=== PATIENT | male | born 1960 | race Caucasian/White ===

== ENCOUNTER 2020-01-28 07:05 | Day surgery (SDC) | payer MEDICARE, OTHER ==
[~2020-01-28 07:05] MED LIST: Acetaminophen 325 MG Tab PO SCH; Lactated Ringers 1,000 ML IV SCH; Lidocaine 1%/Sod Bicarbonate in NS 8.4% 1 ML Syringe IDERM PRN; Pregabalin 25 MG Cap PO SCH; Sodium Chloride 0.9% 10 ML Syringe FLUSH PRN; oxyCODONE ER 10 MG TAB.ER PO SCH
[2020-01-28] MEDS ORDERED: Ropivacaine 0.5% 5 MG/ML 30 ML SDV ONE (07:06)
[2020-01-28] MEDS ORDERED: Dexmedetomidine 200 MCG/2 ML SDV ONE (07:06)
[2020-01-28] MEDS ORDERED: Propofol 200 MG/20 ML SDV ONE (07:15)
[2020-01-28] MEDS ORDERED: fentaNYL 100 MCG/2 ML SDV ONE (07:15)
[2020-01-28] MEDS ORDERED: Dexamethasone 4 MG/ML 5 ML MDV ONE (07:16)
[2020-01-28] MEDS ORDERED: Ondansetron 4 MG/2 ML SDV ONE (07:16)
[2020-01-28] MEDS ORDERED: Succinylcholine/Sod PF 100 MG/5 ML SYRINGE IV ONE (07:16)
[2020-01-28] MEDS ORDERED: Midazolam 1 MG/ML 2 ML SDV ONE (07:16)
[2020-01-28] MEDS ORDERED: Lidocaine 1% 8 ML ONE (07:17)
[2020-01-28] MEDS ORDERED: Bupivacaine 0.25% 10 ML SDV ONE (07:19)
[2020-01-28] MEDS ORDERED: Vancomycin 1 GM SDV ONE (07:19)
[2020-01-28] MEDS ORDERED: Albuterol 0.083% 2.5 MG/3 ML Neb Soln NEB SCH (07:48)
--- NOTE | 2020-01-28 07:48 | PCM.PREANE ---
Preanesthetic Assessment - Anesthesia/Transfusion/Family Hx Anesthesia History: Prior Anesthesia Without Reaction Transfusion History: Unknown - Review of Systems General: No Symptoms Pulmonary: No Symptoms Cardiovascular: No Symptoms Gastrointestinal: No Symptoms Neurological: No Symptoms Other: Reports: None - Physical Assessment NPO Status Date: 01/27/20 NPO Status Time: 20:30 Vital Signs: Last Vital Signs Temp 97.4 F 01/28/20 07:10 Pulse 94 01/28/20 07:10 Resp 16 01/28/20 07:10 BP 116/75 01/28/20 07:10 Pulse Ox 96 01/28/20 07:10 Height: 1.7 m Weight: 78.471 kg ASA Class: 2 Mental Status: Alert & Oriented x3 Dentition: Reports: Dentures (upper and lower), Edentulous Thyro-Mental Finger Breadths: 3 Mouth Opening Finger Breadths: 3 ROM/Head Extension: Limited/Partial Lungs: Clear to Auscultation, Other (coarse at all mosley) Cardiovascular: Regular Rate, Regular Rhythm - Lab Values: Laboratory Last Values MRSA (PCR) Negative 01/16/20 12:58 - Allergies Allergies/Adverse Reactions: Allergies Allergy/AdvReac Type Severity Reaction Status Date / Time vitamin E (d-alpha Allergy Rash Verified 01/28/20 07:06 tocopherol) - Acknowledgements Anesthesia Type Planned: General Anesthesia, Regional Block (Rt ISB) Pt an Appropriate Candidate for the Planned Anesthesia: Yes Alternatives and Risks of Anesthesia Discussed w Pt/Guardian: Yes Pt/Guardian Understands and Agrees with Anesthesia Plan: Yes PreAnesthesia Questionnaire Cardiovascular History: Reports: High Cholesterol, PVD Other Respiratory History: lung nodule Gastrointestinal History: Reports: GERD Genitourinary History: Reports: Prostate Disorder Musculoskeletal History: Reports: Osteoarthritis - Past Surgical History HEENT Surgical History: Reports: Cataract Surgery Cardiovascular Surgical History: Reports: Vascular Surgery Other Neurological Surgeries/Procedures: back surgery x 2 Musculoskeletal Surgical History: Reports: Amputation, Carpal Tunnel, Knee Replacement Other Musculoskeletal Surgeries/Procedures:: right wwrist carpal tunnel release, left below elbow amputation, bilat knee replacement - SUBSTANCE USE Tobacco Use Status *Q: Current Every Day Tobacco User Recreational Drug Use History: No - HOME MEDS Home Medications: Home Meds Ascorbic Acid [Vitamin C] 1 tab PO DAILY 01/25/20 [History] Aspirin [Halfprin] 81 mg PO DAILY 01/25/20 [History] Meloxicam [Mobic] 7.5 mg PO DAILY 01/25/20 [History] Omeprazole Magnesium [Prilosec Otc] 20 mg PO DAILY 01/25/20 [History] Simvastatin [Zocor] 40 mg PO BEDTIME 01/25/20 [History] Tamsulosin [Flomax] 0.4 mg PO DAILY 01/25/20 [History] traMADol [Ultram] 50 mg PO BID PRN 01/25/20 [History] Aspirin [Aspirin EC] 325 mg PO DAILY #40 tablet.dr 01/28/20 [Rx] Cyclobenzaprine [Flexeril] 10 mg PO BID PRN #20 tab 01/28/20 [Rx] oxyCODONE 5 - 10 mg PO Q4H PRN #40 tab 01/28/20 [Rx] - CURRENT (IN HOUSE) MEDS Current Meds: Current Medications Acetaminophen (Tylenol) 975 mg PO ONETIME EARL Stop: 01/28/20 18:00 Last Admin: 01/28/20 07:25 Dose: 975 mg Documented by: Lactated Ringer's (Ringers, Lactated) 1,000 mls @ 125 mls/hr IV ASDIRECTED EARL Stop: 01/28/20 23:00 Lidocaine/Sodium Bicarbonate (Buffered Lidocaine 1% In Ns 8.4%) 0.25 ml IDERM ONETIME PRN PRN Reason: Prior to IV Start Stop: 01/28/20 18:00 Oxycodone HCl (Oxycontin) 10 mg PO ONETIME EARL Stop: 01/28/20 18:00 Last Admin: 01/28/20 07:25 Dose: 10 mg Documented by: Pregabalin (Lyrica) 50 mg PO ONETIME EARL Stop: 01/28/20 18:00 Last Admin: 01/28/20 07:25 Dose: 50 mg Documented by: Sodium Chloride (Saline Flush) 10 ml FLUSH ASDIRECTED PRN PRN Reason: Keep Vein Open Stop: 01/28/20 18:00 Discontinued Medications Bupivacaine HCl (Sensorcaine-Mpf 0.25%) Confirm Administered Dose 30 ml .ROUTE .STK-MED ONE Stop: 01/28/20 07:20 Dexamethasone (Dexamethasone) Confirm Administered Dose 20 mg .ROUTE .STK-MED ONE Stop: 01/28/20 07:17 Dexmedetomidine HCl (Precedex) Confirm Administered Dose 200 mcg .ROUTE .STK-MED ONE Stop: 01/28/20 07:07 Fentanyl (Sublimaze) Confirm Administered Dose 100 mcg .ROUTE .STK-MED ONE Stop: 01/28/20 07:16 Lidocaine HCl (Xylocaine-Mpf 1%) Confirm Administered Dose 8 mls @ as directed .ROUTE .STK-MED ONE Stop: 01/28/20 07:18 Midazolam HCl (Versed 1 Mg/Ml) Confirm Administered Dose 6 mg .ROUTE .STK-MED ONE Stop: 01/28/20 07:17 Ondansetron HCl (Zofran) Confirm Administered Dose 8 mg .ROUTE .ST-MED ONE Stop: 01/28/20 07:17 Propofol (Diprivan 20 Ml) Confirm Administered Dose 200 mg .ROUTE .STK-MED ONE Stop: 01/28/20 07:16 Ropivacaine (Naropin 0.5%) Confirm Administered Dose 30 ml .ROUTE .STK-MED ONE Stop: 01/28/20 07:07 Tranexamic Acid (Cyklokapron) Confirm Administered Dose 1,000 mg .ROUTE .STK-MED ONE Stop: 01/28/20 07:20 Vancomycin HCl (Vancomycin) Confirm Administered Dose 1 gm .ROUTE .STK-MED ONE Stop: 01/28/20 07:20
[2020-01-28] MEDS ORDERED: ceFAZolin 1 GM Vial ONE (08:23)
[2020-01-28] MEDS ORDERED: Lactated Ringers 1,000 ML ONE (09:15)
[2020-01-28] MEDS ORDERED: HYDROmorphone 0.5 MG/0.5 ML Syringe ONE (09:20)
--- NOTE | 2020-01-28 09:42 | PCM.PRNOTE ---
- Free Text/Narrative Note: Postoperative regional pain control requested by surgeon. Pre-op Dx: Right shoulder osteoarthritis Surgical procedure: Right reverse tottal shoulder arthroplasty Procedure: Right Interscalene block with U/S guidance Requesting physician: Dr. Mahendra Hernandez Risks and benefits discussed with the patient preoperatively including infection, bleeding, incomplete or failed block, possible nerve damage, local anesthetic toxicity. Chart reviewed, VS stable. Permit signed. Patient in preoperative room 3, stable , alert and awake. Time out performed at 08:06. Oxygen 3L via NC. Right side of the neck was prepped with Chloraprep x 1 and allowed to dry. Midazolam IV 2 mg given. Under aseptic technique, the brachial plexus was identified under ultrasound prior to needle insertion. Local infiltration with 2 mls of 1% Lidocaine. 2" Stimuplex needle #22 G was inserted under US guidance. Neuromuscular response of biceps contraction and forearm twitching elicited at 0.6 mA. Under direct visualization of needle tip the injection of 0.5% Ropivacaine (25 ml) with 1:200k epinephrine 8 mg of Dexamethasone and 30 mcg of Dexmedetomidine, total of 27 mls in divided doses, maintaining negative aspiration was completed without problems. No local anesthetic toxicity was noted. Patient is awake, stable and tolerated the procedure well. Please see the attached U/S image Time: 08:06 - 08:16
[2020-01-28] MEDS ORDERED: HYDROmorphone 0.5 MG/0.5 ML Syringe IVPUSH PRN (09:48)
[2020-01-28] MEDS ORDERED: fentaNYL 100 MCG/2 ML SDV IVPUSH PRN (09:48)
--- NOTE | 2020-01-28 10:40 | PCM.POSTAN ---
POST ANESTHESIA ASSESSMENT - MENTAL STATUS Mental Status: Somnolent - VITAL SIGNS Vital Signs: Last Vital Signs Temp 97.0 F 01/28/20 10:30 Pulse 94 01/28/20 07:10 Resp 9 L 01/28/20 10:30 BP 110/65 01/28/20 10:30 Pulse Ox 98 01/28/20 10:30 - RESPIRATORY Respiratory Status: Respiratory Rate WNL, Airway Patent, O2 Saturation Stable, Supplemental Oxygen - CARDIOVASCULAR CV Status: Pulse Rate WNL, Blood Pressure Stable - GASTROINTESTINAL GI Status: No Symptoms - PAIN Pain Score: 0 (post ISB) - POST OP HYDRATION Hydration Status: Adequate & Stable
--- NOTE | 2020-01-28 14:15 | PCM48HPAN ---
Post Anesthesia Note - EVALUATION WITHIN 48HRS OF ANESTHETIC Vital Signs in Normal Range: Yes Patient Participated in Evaluation: Yes Respiratory Function Stable: Yes Airway Patent: Yes Cardiovascular Function Stable: Yes Hydration Status Stable: Yes Pain Control Satisfactory: Yes Nausea and Vomiting Control Satisfactory: Yes Mental Status Recovered: Yes Vital Signs: Last Vital Signs Temp 97.7 F 01/28/20 12:25 Pulse 86 01/28/20 12:25 Resp 16 01/28/20 12:25 BP 93/71 01/28/20 12:25 Pulse Ox 90 L 01/28/20 12:25 - COMMENTS/OBSERVATIONS Free Text/Narrative:: Instructions given to the patient and family member regarding the peripheral block. Ptient is comfortable, ready to be discharged home
--- NOTE | 2020-01-28 15:16 | CR ---
PROCEDURE INFORMATION: Exam: XR Right Shoulder Exam date and time: 01/28/2020 10:32 AM Age: 59 years old Clinical indication: Device placement; Joint replacement hardware; Patient HX: Right shoulder replacement TECHNIQUE: Imaging protocol: XR Right shoulder. Views: 1 view. COMPARISON: CR Shoulder Comp Rt 05/01/2019 12:23 PM FINDINGS: Bones/joints: The patient has had an interval right reverse total shoulder arthroplasty. There is degenerative change involving the acromioclavicular joint. Soft tissues: Postoperative soft tissue changes. IMPRESSION: Postoperative and degenerative changes. Thank you for allowing us to participate in the care of your patient. Dictated and Authenticated by: Elgin Real MD 01/28/2020 12:05 PM Central Time ([place] & [place]) ROBB
--- NOTE | 2020-01-28 15:17 | CR ---
PROCEDURE INFORMATION: Exam: XR Right Shoulder Exam date and time: 01/28/2020 10:49 AM Age: 59 years old Clinical indication: Right total shoulder replacement TECHNIQUE: Imaging protocol: XR Right shoulder. Views: 1 view. COMPARISON: No relevant prior studies available. FINDINGS: Bones/joints: Intraoperative spot radiographs demonstrate that the patient has had a reverse total shoulder arthroplasty. Soft tissues: Postoperative soft tissue changes present. IMPRESSION: Postoperative changes. Thank you for allowing us to participate in the care of your patient. Dictated and Authenticated by: Elgin Real MD 01/28/2020 11:28 AM Central Time ([place] & [place]) ROBB
--- NOTE | 2020-02-11 14:11 | PCM.OPNOTE ---
- General Post-Op/Procedure Note Date of Surgery/Procedure: 01/28/20 Operative Procedure(s): right reverese total shoulder arthroplasty Pre Op Diagnosis: right shoulder rotator cuff tear arthropathy Post-Op Diagnosis: Same Anesthesia Technique: General ET Tube, Regional Block Primary Surgeon: Mahendra King Anesthesia Provider: Leonardo Hayes Embossing Press Operator: Johnna Smith Embossing Press Operator: Calista Macias EBL in mLs: 150 Complications: None Condition: Good Free Text/Narrative:: 18 stem 36+4 glenosphere 28mm baseplate +6 poly
--- NOTE | 2020-02-11 15:09 | OR ---
DATE OF OPERATION: 01/28/2020 SURGEON: Mahendra King MD OPERATION PERFORMED: Right reverse total shoulder arthroplasty. PREOPERATIVE DIAGNOSIS: Right shoulder rotator cuff tear arthropathy. POSTOPERATIVE DIAGNOSIS: Right shoulder rotator cuff tear arthropathy. ANESTHESIA: General endotracheal intubation with regional interscalene block. ANESTHESIA PROVIDER: Leonardo Hayes. ASSISTANTS: Johnna Smith PA-C, and Calista Macias LPN. ESTIMATED BLOOD LOSS: 150 mL. COMPLICATIONS: None. CONDITION: Stable. IMPLANTS: 1. Cesar size 18, 135-degree humeral stem. 2. Cesar size 36 +4 glenosphere. 3. Norris size 28 mm concentric base plate. 4. Norris size +6 mm polyethylene liner. DESCRIPTION OF PROCEDURE: The patient was identified in the preoperative holding area where proper site was marked and identified by the surgeon. The patient was taken back to the operative theater, where after adequate anesthesia, the patient's right upper extremity was sterilely prepped and draped in the usual sterile fashion. OR time-out was performed. The patient received 2 g IV Ancef. He was placed in the reverse Trendelenburg position. Standard deltopectoral incision was made. Cephalic vein was identified and was retracted laterally with the deltoid. Clavipectoral fascia was incised. Conjoined tendon was retracted medially. Biceps tendon was identified and a pectoralis tenodesis was performed. The biceps tendon above this was then resected. The biceps tendon was resected all the way back to the level of the glenoid. Peel down of the subscapularis tendon was then done at this time. Humeral head was then dislocated. Neck cut was completed and found to be adequate. Attention was turned to the glenoid. Anterior and posterior glenoid retractors were placed. Circumferential removal of the labrum as well as any remaining biceps was done at this time as well as a partial capsulectomy. Guide pin was then placed in a center-center position with roughly 10 degrees of inferior tilt and a 28 mm concentric reamer was then utilized for the base plate. It was found to have good resection with a good smile sign. The inferior osteophyte was then removed with a rongeur. The guide pin was then pulled and the 28 mm concentric base plate was screwed in place with a central compression screw, which was found to have adequate purchase. Inferior and superior locking screws were then placed in the glenoid in divergent fashion. A 36 +4 glenosphere was then impacted into place and found to be secure. Attention was turned to the humerus. Starting with a starter awl, I started with a size 12 broach, was able to broach up to a size 18, which was found to be rotationally and vertically stable. A calcar planer was then utilized in the humerus and the trial implants with a +4 were trialed with trial +4 liner. This was brought through range of motion, was found to have just a minor amount of shuck on shuck testing, so we decided to trial a +6. This had adequate stability throughout range of motion. No signs of dislocation or instability. C-arm fluoroscopy was utilized to make sure that the trial parts were in good position and they were. Trial parts were then removed and the stem was constructed on the back table and then was impacted into the humerus en bloc. At this time, the shoulder was relocated. C-arm fluoroscopy was then utilized and all components were aligned. 1 L of Irrisept solution was irrigated through the shoulder along with 1 L pulse lavage irrigation with Ancef. Topical tranexamic acid and vancomycin powder were applied. 2-0 Vicryl was used subcutaneously. Prineo was used for closure of the skin. The patient was placed in a sterile soft dressing and a pillow sling and sent to the PACU in stable condition. MMODAL /[id number]
== END 2020-01-28 14:10 | disposition home or self-care (01) ==
LOC: JD.SDS 07:05
PROVIDERS: ATTEND Orthopaedic Surgery
DX: M75.101 Unspecified rotator cuff tear or rupture of right shoulder, not specified as traumatic (principal); M19.011 Primary osteoarthritis, right shoulder; F17.210 Nicotine dependence, cigarettes, uncomplicated; Z88.8 Allergy status to other drugs, medicaments and biological substances; Z79.899 Other long term (current) drug therapy
CPT/HCPCS: 23472; 73020; 76000; 87641; 94640; 97110; 97161; 97165; A9270; C1713; C1769; C1776; J0330; J0690; J1100; J1170; J2001; J2250; J2370; J2405; J2704; J2795; J3010; J3370; J3490; J7120; 01638; 64415

== ENCOUNTER 2020-03-31 07:09 | Day surgery (SDC) | payer MEDICARE, OTHER ==
[~2020-03-31 07:09] MED LIST changes: +Ropivacaine 0.5% 5 MG/ML 30 ML SDV ONE
[2020-03-31] MEDS ORDERED: ceFAZolin 1 GM Vial ONE (07:14)
[2020-03-31] MEDS ORDERED: fentaNYL 100 MCG/2 ML SDV ONE (07:14)
[2020-03-31] MEDS ORDERED: Midazolam 1 MG/ML 2 ML SDV ONE (07:14)
[2020-03-31] MEDS ORDERED: Lidocaine 1% 4 ML ONE (07:15)
[2020-03-31] MEDS ORDERED: Dexmedetomidine 200 MCG/2 ML SDV ONE (07:15)
[2020-03-31] MEDS ORDERED: Ondansetron 4 MG/2 ML SDV ONE (07:15)
[2020-03-31] MEDS ORDERED: Bupivacaine 0.25% 10 ML SDV ONE (07:20)
[2020-03-31] MEDS ORDERED: Propofol 200 MG/20 ML SDV ONE (07:25)
--- NOTE | 2020-03-31 08:12 | PCM.PREANE ---
Preanesthetic Assessment - Procedure Proposed Procedure: Left Reverse TSR - Anesthesia/Transfusion/Family Hx Anesthesia History: Prior Anesthesia Without Reaction Transfusion History: Unknown - Review of Systems General: No Symptoms Pulmonary: No Symptoms Cardiovascular: No Symptoms Gastrointestinal: No Symptoms Neurological: No Symptoms Other: Reports: None - Physical Assessment NPO Status Date: 03/30/20 NPO Status Time: 20:00 Vital Signs: Last Vital Signs Temp 98.2 F 03/31/20 07:05 Pulse 88 03/31/20 07:05 Resp 16 03/31/20 07:05 BP 124/84 03/31/20 07:05 Pulse Ox 93 L 03/31/20 07:05 Height: 1.7 m Weight: 79.832 kg ASA Class: 2 Mental Status: Alert & Oriented x3 Airway Class: Mallampati = 2 Dentition: Reports: Dentures, Edentulous Thyro-Mental Finger Breadths: 3 Mouth Opening Finger Breadths: 3 ROM/Head Extension: Limited/Partial Lungs: Clear to Auscultation, Normal Respiratory Effort Cardiovascular: Regular Rate, Regular Rhythm - Lab Values: Laboratory Last Values SARS-CoV-2 (PCR) Not detected (NOT DETECT) 03/27/20 09:30 MRSA (PCR) Negative 03/19/20 13:24 - Allergies Allergies/Adverse Reactions: Allergies Allergy/AdvReac Type Severity Reaction Status Date / Time vitamin E (d-alpha Allergy Rash Verified 03/28/20 13:14 tocopherol) - Acknowledgements Anesthesia Type Planned: General Anesthesia, Regional Block Pt an Appropriate Candidate for the Planned Anesthesia: Yes Alternatives and Risks of Anesthesia Discussed w Pt/Guardian: Yes Pt/Guardian Understands and Agrees with Anesthesia Plan: Yes PreAnesthesia Questionnaire HEENT History: Reports: None Cardiovascular History: Reports: High Cholesterol, PVD, Other (See Below) Other Cardiovascular History: femoral bypass surgery Other Respiratory History: lung nodule Gastrointestinal History: Reports: GERD Genitourinary History: Reports: Prostate Disorder [employer] History: Reports: None Musculoskeletal History: Reports: Osteoarthritis Neurological History: Reports: None Psychiatric History: Reports: None Endocrine/Metabolic History: Reports: None Hematologic History: Reports: None Immunologic History: Reports: None Oncologic (Cancer) History: Reports: None Dermatologic History: Reports: None - Past Surgical History Head Surgeries/Procedures: Reports: None HEENT Surgical History: Reports: Cataract Surgery Cardiovascular Surgical History: Reports: Vascular Surgery Respiratory Surgical History: Reports: None GI Surgical History: Reports: None Female Surgical History: Reports: None Male Surgical History: Reports: None Endocrine Surgical History: Reports: None Neurological Surgical History: Reports: Other (See Below) Other Neurological Surgeries/Procedures: back surgery x 2 Musculoskeletal Surgical History: Reports: Amputation, Carpal Tunnel, Joint Replacement, Knee Replacement, Shoulder Surgery Other Musculoskeletal Surgeries/Procedures:: right wrist carpal tunnel release, left below elbow amputation, bilat knee replacement, right total shoulder replacement Oncologic Surgical History: Reports: None Dermatological Surgical History: Reports: None - SUBSTANCE USE Tobacco Use Status *Q: Current Every Day Tobacco User Recreational Drug Use History: No - HOME MEDS Home Medications: Home Meds Ascorbic Acid [Vitamin C] 1 tab PO DAILY 01/25/20 [History] Meloxicam [Mobic] 7.5 mg PO DAILY 01/25/20 [History] Omeprazole Magnesium [Prilosec Otc] 20 mg PO DAILY 01/25/20 [History] Simvastatin [Zocor] 40 mg PO BEDTIME 01/25/20 [History] Tamsulosin [Flomax] 0.4 mg PO DAILY 01/25/20 [History] Cholecalciferol (Vitamin D3) [Vitamin D3] 5,000 unit PO DAILY 03/28/20 [History] Pramipexole [Mirapex] 0.25 mg PO DAILY 03/28/20 [History] Aspirin [Aspirin EC] 325 mg PO DAILY #40 tablet. 03/29/20 [Rx] Cyclobenzaprine [Flexeril] 10 mg PO BID PRN #20 tab 03/29/20 [Rx] oxyCODONE 5 - 10 mg PO Q4H PRN #40 tab 03/29/20 [Rx] - CURRENT (IN HOUSE) MEDS Current Meds: Current Medications Acetaminophen (Tylenol) 975 mg PO ONETIME EARL Stop: 03/31/20 13:00 Last Admin: 03/31/20 07:18 Dose: 975 mg Documented by: Lactated Ringer's (Ringers, Lactated) 1,000 mls @ 125 mls/hr IV ASDIRECTED EARL Stop: 03/31/20 23:00 Last Admin: 03/31/20 07:25 Dose: 125 mls/hr Documented by: Lidocaine/Sodium Bicarbonate (Buffered Lidocaine 1% In Ns 8.4%) 0.25 ml IDERM ONETIME PRN PRN Reason: Prior to IV Start Stop: 03/31/20 18:00 Last Admin: 03/31/20 07:24 Dose: 0.25 ml Documented by: Oxycodone HCl (Oxycontin) 10 mg PO ONETIME EARL Stop: 03/31/20 13:00 Last Admin: 03/31/20 07:19 Dose: 10 mg Documented by: Pregabalin (Lyrica) 50 mg PO ONETIME EARL Stop: 03/31/20 13:00 Last Admin: 03/31/20 07:18 Dose: 50 mg Documented by: Sodium Chloride (Saline Flush) 10 ml FLUSH ASDIRECTED PRN PRN Reason: Keep Vein Open Stop: 03/31/20 18:00 Discontinued Medications Bupivacaine HCl (Sensorcaine-Mpf 0.25%) Confirm Administered Dose 10 ml .ROUTE .STK-MED ONE Stop: 03/31/20 07:21 Cefazolin Sodium (Ancef) Confirm Administered Dose 2 gm .ROUTE .STK-MED ONE Stop: 03/31/20 07:15 Dexmedetomidine HCl (Precedex) Confirm Administered Dose 200 mcg .ROUTE .STK-MED ONE Stop: 03/31/20 07:16 Fentanyl (Sublimaze) Confirm Administered Dose 100 mcg .ROUTE .STK-MED ONE Stop: 03/31/20 07:15 Lidocaine HCl (Xylocaine-Mpf 1%) Confirm Administered Dose 4 mls @ as directed .ROUTE .STK-MED ONE Stop: 03/31/20 07:16 Midazolam HCl (Versed 1 Mg/Ml) Confirm Administered Dose 4 mg .ROUTE .STK-MED ONE Stop: 03/31/20 07:15 Ondansetron HCl (Zofran) Confirm Administered Dose 8 mg .ROUTE .STK-MED ONE Stop: 03/31/20 07:16 Propofol (Diprivan 20 Ml) Confirm Administered Dose 200 mg .ROUTE .STK-MED ONE Stop: 03/31/20 07:26 Ropivacaine (Naropin 0.5%) Confirm Administered Dose 30 ml .ROUTE .STK-MED ONE Stop: 03/31/20 06:54 Tranexamic Acid (Cyklokapron) Confirm Administered Dose 1,000 mg .ROUTE .STK-MED ONE Stop: 03/31/20 07:21 Vancomycin HCl (Vancomycin) Confirm Administered Dose 1 gm .ROUTE .[facility] [place]-MED ONE Stop: 03/31/20 07:21
[2020-03-31] MEDS: Vancomycin 1 GM SDV ONE ×2 (08:23→09:59)
[2020-03-31] MEDS ORDERED: Lactated Ringers 1,000 ML ONE (09:34)
[2020-03-31] MEDS ORDERED: Dexamethasone 4 MG/ML 5 ML MDV ONE (09:52)
--- NOTE | 2020-03-31 09:54 | PCM.PRNOTE ---
- Free Text/Narrative Note: Postoperative regional pain control requested by surgeon. Pre-op Dx: Left shoulder osteoarthritis Surgical procedure: Left reverse tottal shoulder arthroplasty Procedure: Left Interscalene block with U/S guidance Requesting physician: Dr. Mahendra Hernandez Risks and benefits discussed with the patient preoperatively including infection, bleeding, incomplete or failed block, possible nerve damage, local anesthetic toxicity. Chart reviewed, VS stable. Permit signed. Patient in preoperative room, stable , alert and awake. Time out performed at 07:53. Oxygen 3L via NC. Left side of the neck was prepped with Chloraprep x 1 and allowed to dry. Midazolam IV 2 mg given. Under aseptic technique, the brachial plexus was identified under ultrasound prior to needle insertion. Local infiltration with 2 mls of 1% Lidocaine. 2" Stimuplex needle #22 G was inserted under US guidance. Neuromuscular response of biceps contraction and forearm twitching elicited at 0.6 mA. Under direct visualization of needle tip the injection of 0.5% Ropivacaine (20 ml) with 1:200k epinephrine 8 mg of Dexamethasone and 40 mcg of Dexmedetomidine, total of 22 mls in divided doses, maintaining negative aspiration was completed without problems. No local anesthetic toxicity was noted. Patient is awake, stable and tolerated the procedure well. Please see the attached U/S image Time: 07:53 - 07:59
--- NOTE | 2020-03-31 10:45 | CR ---
Left shoulder: 4 fluoroscopic spot views were obtained utilizing C-arm device were obtained of the left shoulder. Study shows placement of a reverse left shoulder prosthesis. No gross bony abnormality is otherwise seen. Fluoroscopy time is given as 5.2 seconds. Impression: 1. Procedural study as noted above. Diagnostic code #2
[2020-03-31] MEDS ORDERED: HYDROmorphone 0.5 MG/0.5 ML Syringe IVPUSH PRN (10:47)
[2020-03-31] MEDS ORDERED: fentaNYL 100 MCG/2 ML SDV IVPUSH PRN (10:47)
--- NOTE | 2020-03-31 10:47 | PCM.POSTAN ---
POST ANESTHESIA ASSESSMENT - MENTAL STATUS Mental Status: Somnolent - VITAL SIGNS Vital Signs: Last Vital Signs Temp 97.8 F 03/31/20 10:27 Pulse 87 03/31/20 10:27 Resp 14 03/31/20 10:27 BP 115/76 03/31/20 10:27 Pulse Ox 99 03/31/20 10:27 - RESPIRATORY Respiratory Status: Respiratory Rate WNL, Airway Patent, O2 Saturation Stable, Supplemental Oxygen - CARDIOVASCULAR CV Status: Pulse Rate WNL, Blood Pressure Stable - GASTROINTESTINAL GI Status: No Symptoms - PAIN Pain Score: 0 - POST OP HYDRATION Hydration Status: Adequate & Stable
--- NOTE | 2020-03-31 11:53 | CR ---
Left shoulder: Single AP view of the left shoulder was obtained. Comparison: Prior fluoroscopic exam performed on the same day. Left shoulder prosthesis is seen of the reverse type. No other acute bony abnormality is appreciated. Impression: 1. Procedural study as noted above. Nothing acute is seen. Diagnostic code #2
--- NOTE | 2020-03-31 12:11 | PCM48HPAN ---
Post Anesthesia Note - EVALUATION WITHIN 48HRS OF ANESTHETIC Vital Signs in Normal Range: Yes Patient Participated in Evaluation: Yes Respiratory Function Stable: Yes Airway Patent: Yes Cardiovascular Function Stable: Yes Hydration Status Stable: Yes Pain Control Satisfactory: Yes Nausea and Vomiting Control Satisfactory: Yes Mental Status Recovered: Yes Vital Signs: Last Vital Signs Temp 97.7 F 03/31/20 11:10 Pulse 72 03/31/20 11:24 Resp 14 03/31/20 11:24 BP 109/72 03/31/20 11:24 Pulse Ox 92 L 03/31/20 11:24 - COMMENTS/OBSERVATIONS Free Text/Narrative:: preparing for home discharge
--- NOTE | 2020-04-07 16:53 | PCM.OPNOTE ---
- General Post-Op/Procedure Note Date of Surgery/Procedure: 03/31/20 Operative Procedure(s): left reverse total shoulder arthroplasty Pre Op Diagnosis: left shoulder rotator cuff tear arthropathy Post-Op Diagnosis: Same Anesthesia Technique: General ET Tube, Regional Block Primary Surgeon: Mahendra King Anesthesia Provider: Leonardo Hayes Valet: Johnna Smith Valet: Calista Macias EBL in mLs: 125 Complications: None Condition: Good Free Text/Narrative:: 19 stem 36+6 glenosphere 4mm poly 28mm baseplate
--- NOTE | 2020-04-13 18:04 | OR ---
DATE OF OPERATION: 03/31/2020 SURGEON: Mahendra King MD OPERATION PERFORMED: Left reverse total shoulder arthroplasty. PREOPERATIVE DIAGNOSIS: Left shoulder rotator cuff tear arthropathy. POSTOPERATIVE DIAGNOSIS: Left shoulder rotator cuff tear arthropathy. ANESTHESIA: Technique: General endotracheal intubation with regional interscalene block. ANESTHESIOLOGIST: Leonardo Hayes. ASSISTANTS: Johnna Smith PA-C, and Calista Macias LPN. ESTIMATED BLOOD LOSS: 125 mL. COMPLICATIONS: None. CONDITION: Stable. IMPLANT: 1. Curlew size 19, 135-degree reverse humeral stem. 2. Cesar size 36 +6 glenosphere. 3. Curlew size +4 mm polyethylene. 4. Cesar size 28 mm concentric base plate. DESCRIPTION OF PROCEDURE: The patient was identified in the preoperative holding area. Proper site was marked and identified by the surgeon. The patient was taken back to the operating theater, where after adequate anesthesia, the patient's left upper extremity was sterilely prepped and draped in the usual sterile fashion. OR time-out was performed. The patient received 2 g IV Ancef. The patient was placed in reverse Trendelenburg position. A standard deltopectoral incision was made centered over the coracoid, taken down to the attachment of the deltoid. This was taken at the cephalic vein. Cephalic vein was identified and was retracted laterally with the deltoid. The pectoralis was retracted medially. The clavipectoral fascia was incised. The conjoined tendon was retracted medially. The anterior humeral circumflex vessels were ligated. Takedown of the biceps tendon was then done and a pectoralis tenodesis was performed with a #2 FiberWire. The biceps was then resected all the way back to the level of the glenoid. Peel down of the subscapularis tendon was then done at this time, the humeral head was dislocated and the neck cut was then completed and found to be adequate. Attention was turned to the glenoid. Anterior and posterior retractors were placed on the glenoid. Circumferential removal of the remaining labrum was done at this time as well as a partial capsulectomy. A guide pin was then placed in a center-center position with roughly 10-degree inferior tilt. The 28 mm concentric reamer was then utilized and back to a good bony bleeding bed. The guide pin was then removed. Central screw was measured and the 28 mm concentric glenoid base plate was then screwed into place with central compression screw and inferior and superior locking screw were then placed as well and a 36 +6 glenosphere was impacted into place. Attention was turned to the humerus. Starting with the starter awl, I was then able to ream the canal up to a 19. I was able then broach up to a 19, which was found to be rotationally and vertically stable. Calcar Planer was then utilized. Trial implants were then placed. The patient's shoulder was relocated, it was stable throughout range of motion with no undue tension on either the deltoid or the conjoined tendon. C-arm fluoroscopy showed our all implants to be in proper position and anatomic alignment. There was no instability throughout range of motion. Trial implants were then removed. The real implants were constructed on the back table with +4 poly and a 19 stem, 135 degree. This was then impacted into place and locked into the humerus and it was reduced. Again, C- arm fluoroscopy showed no fractures and again, everything in anatomic alignment. 1 L of Irrisept irrigation was irrigated through the shoulder along with 1 L pulse lavage irrigation with Ancef. Topical tranexamic acid and vancomycin powder applied, 2-0 Vicryl was used subcutaneously, Prineo was used for closure of skin. The patient tolerated the procedure well and sent to PACU in stable condition. GERALD /[id number]
== END 2020-03-31 12:26 | disposition home or self-care (01) ==
LOC: JD.SDS 07:09
PROVIDERS: ATTEND Orthopaedic Surgery
DX: M75.102 Unspecified rotator cuff tear or rupture of left shoulder, not specified as traumatic (principal); M19.012 Primary osteoarthritis, left shoulder; K21.9 Gastro-esophageal reflux disease without esophagitis; F17.210 Nicotine dependence, cigarettes, uncomplicated; G25.81 Restless legs syndrome; I73.9 Peripheral vascular disease, unspecified; Z98.890 Other specified postprocedural states; E78.00 Pure hypercholesterolemia, unspecified; Z01.812 Encounter for preprocedural laboratory examination; Z20.822 Contact with and (suspected) exposure to COVID-19; Z79.899 Other long term (current) drug therapy; Z79.82 Long term (current) use of aspirin; Z88.8 Allergy status to other drugs, medicaments and biological substances; G89.18 Other acute postprocedural pain
CPT/HCPCS: 23472; 73020; 76000; 87641; 97161; A9270; C1713; C1769; C1776; J0690; J1100; J2001; J2250; J2370; J2405; J2704; J2795; J3010; J3370; J7120; U0002; 01638; 64415; J3490

== ENCOUNTER 2021-04-19 23:21 | Emergency (ER) | payer MEDICARE, OTHER ==
[2021-04-19] MEDS ORDERED: Sodium Chloride 0.9% 1,000 ML IV SCH (23:45)
[2021-04-19] MEDS ORDERED: Sodium Chloride 0.9% 10 ML Syringe FLUSH PRN (23:56)
== END 2021-04-20 01:40 | disposition home or self-care (01) ==
LOC: JD.ED 23:21
DX: R55 Syncope and collapse (principal); R19.7 Diarrhea, unspecified; E78.00 Pure hypercholesterolemia, unspecified; K21.9 Gastro-esophageal reflux disease without esophagitis; M19.90 Unspecified osteoarthritis, unspecified site; Z88.8 Allergy status to other drugs, medicaments and biological substances; Z79.899 Other long term (current) drug therapy; Z79.82 Long term (current) use of aspirin; Z72.0 Tobacco use
CPT/HCPCS: 36415; 80053; 84484; 85025; 93005; 99284; J7030

== ENCOUNTER 2022-05-14 18:43 | Emergency (ER) | payer MEDICARE, OTHER | END 2022-05-14 21:00 | disposition home or self-care (01) | LOC: JD.ED 18:43 | DX: R04.0 Epistaxis (principal); E78.00 Pure hypercholesterolemia, unspecified; K21.9 Gastro-esophageal reflux disease without esophagitis; M19.90 Unspecified osteoarthritis, unspecified site; Z86.16 Personal history of COVID-19; Z88.8 Allergy status to other drugs, medicaments and biological substances; Z79.82 Long term (current) use of aspirin; Z79.899 Other long term (current) drug therapy | CPT/HCPCS: 30901; 99282; 99283 ==

== ENCOUNTER 2023-06-22 04:40 | Emergency (ER) | payer MEDICARE, OTHER ==
[2023-06-22] MEDS: HYDROmorphone 0.5 MG/0.5 ML Syringe IVPUSH ONE (05:09)
[2023-06-22] MEDS: Sodium Chloride 0.9% 10 ML Syringe FLUSH PRN (05:10)
[2023-06-22 05:43] LABS: ALANINE AMINOTRANSFERASE,ALT 76 U/L (16-63); ALBUMIN 4.1 g/dl (3.4-5.0); ALKALINE PHOSPHATASE 90 U/L (46-116); ANION GAP 13.5 (5-15); ASPARTATE AMNIOTRANSFERASE,AST 144 U/L (15-37); BILIRUBIN TOTAL 0.5 mg/dL (0.2-1.0); BLOOD UREA NITROGEN,BUN 10 mg/dL (7-18); BUN/CREATININE RATIO 11.1 (14-18); CALCIUM 9.5 mg/dL (8.5-10.1); CARBON DIOXIDE,CO2 30 mEq/L (21-32); CHLORIDE,CL 102 mEq/L (98-107); CREATININE 0.9 mg/dL (0.7-1.3); EST CRCL DRUG DOSING (CG) 79.56 mL/min; ESTIMATED GFR 97 mL/min (>60); GLUCOSE RANDOM 97 mg/dL (70-99); LIPASE 37 U/L (16-77); POTASSIUM,K 3.5 mEq/L (3.5-5.1); PROTEIN TOTAL,TP 8.1 g/dl (6.4-8.2); SODIUM,NA 142 mEq/L (136-145); TROPONIN I HIGH SENSITIVITY 8 pg/mL (<=76)
[2023-06-22 05:49] LABS: BASOPHILS ABSOLUTE AUTO 0.1 K/mm3 (0.0-0.2); BASOPHILS PERCENT AUTO 1.2 % (0.0-1.0); EOSINOPHILS ABSOLUTE AUTO 0.2 K/mm3 (0.0-0.4); EOSINOPHILS PERCENT AUTO 3.5 % (0.0-6.0); HEMATOCRIT 45.6 % (42.0-52.0); HEMOGLOBIN 15.1 gm/dl (14.0-18.0); IMMATURE GRAN ABSOLUTE AUTO 0.01 K/mm3 (0.00-0.05); IMMATURE GRAN PERCENT AUTO 0.2 % (0.0-0.4); LYMPHOCYTES ABSOLUTE AUTO 2.3 K/mm3 (1.0-4.8); MEAN CORPUSCULAR HGB CONC 33.1 g/dl (32.0-36.0); MEAN CORPUSCULAR VOLUME 87.5 fl (83.0-99.0); MEAN PLATELET VOLUME 10.8 fl (9.4-12.4); MONOCYTES ABSOLUTE AUTO 0.4 K/mm3 (0.0-0.8); MONOCYTES PERCENT AUTO 10.1 % (0.0-8.0); NEUTROPHILS ABSOLUTE AUTO 1.3 K/mm3 (1.8-7.7); PLATELET COUNT,PLT 256 K/mm3 (150-400); RED BLOOD CELL COUNT 5.21 M/mm3 (4.52-5.90); WHITE BLOOD CELL COUNT,WBC 4.26 K/mm3 (3.9-11.3)
[2023-06-22 06:05] LABS: C-REACTIVE PROTEIN < 0.05 mg/dL (<0.30)
[2023-06-22] MEDS ORDERED: Sodium Chloride 0.9% 100 ML IV SCH (06:15)
[2023-06-22] MEDS: Iopamidol 612 MG/ML 100 ML Bottle IVPUSH ONE (06:16)
[2023-06-22] MEDS: Iopamidol 755 Mg/ML 100 ML Bottle IVPUSH ONE (06:24)
[2023-06-22] MEDS: Alum Hydrox/Mag Hydrox/Simeth 30 ML, Lidocaine 2% 15 ML PO ONE (09:19)
[2023-06-22 10:01] LABS: APPEARANCE,URINE CLEAR (Clear); BILIRUBIN,URINE NEGATIVE (Negative); COLOR,URINE YELLOW (Yellow); GLUCOSE,URINE NEGATIVE (Negative); KETONES,URINE NEGATIVE (Negative); LEUKOCYTE ESTERASE,URINE NEGATIVE (Negative); NITRITE,URINE NEGATIVE (Negative); OCCULT BLOOD,URINE NEGATIVE (Negative); PH,URINE 5.5 (5.0-8.0); PROTEIN,URINE NEGATIVE (Negative)
[2023-06-22 10:36] LABS: BACTERIA,URINE RARE /hpf (FEW); EPITHELIAL CELLS,URINE NOT SEEN /hpf (0-5); MUCUS,URINE RARE /hpf (FEW); RBC,URINE 0-5 /hpf (0-5); WBC,URINE NOT SEEN /hpf (0-5)
== END 2023-06-22 10:00 | disposition home or self-care (01) ==
LOC: JD.ED 04:40
DX: K29.70 Gastritis, unspecified, without bleeding (principal); E78.00 Pure hypercholesterolemia, unspecified; I10 Essential (primary) hypertension; J44.9 Chronic obstructive pulmonary disease, unspecified; K21.9 Gastro-esophageal reflux disease without esophagitis; Z88.8 Allergy status to other drugs, medicaments and biological substances; Z79.899 Other long term (current) drug therapy; Z86.16 Personal history of COVID-19; Z90.49 Acquired absence of other specified parts of digestive tract
CPT/HCPCS: 36415; 71045; 71275; 74177; 80053; 81001; 83690; 84484; 85025; 85379; 86140; 93005; 96374; 99285; A9270; J1170; J3490; Q9967; 93010; 99284

== ENCOUNTER 2023-11-19 07:46 | Emergency (ER) | payer MEDICARE, OTHER ==
[2023-11-19 08:19] LABS: BASOPHILS PERCENT AUTO 0.8 % (0.0-1.0); EOSINOPHILS ABSOLUTE AUTO 0.1 K/mm3 (0.0-0.4); EOSINOPHILS PERCENT AUTO 2.5 % (0.0-6.0); HEMOGLOBIN 15.2 gm/dl (14.0-18.0); IMMATURE GRAN ABSOLUTE AUTO 0.02 K/mm3 (0.00-0.05); IMMATURE GRAN PERCENT AUTO 0.4 % (0.0-0.4); LYMPHOCYTES ABSOLUTE AUTO 1.5 K/mm3 (1.0-4.8); LYMPHOCYTES PERCENT AUTO 28.6 % (24.0-44.0); MEAN CORPUSCULAR HEMOGLOBIN 31.1 pg (28.0-32.0); MEAN CORPUSCULAR HGB CONC 33.8 g/dl (32.0-36.0); MEAN PLATELET VOLUME 10.7 fl (9.4-12.4); MONOCYTES ABSOLUTE AUTO 0.5 K/mm3 (0.0-0.8); MONOCYTES PERCENT AUTO 9.4 % (0.0-8.0); NEUTROPHILS ABSOLUTE AUTO 3.1 K/mm3 (1.8-7.7); NEUTROPHILS PERCENT AUTO 58.3 % (41.0-71.0); PLATELET COUNT,PLT 263 K/mm3 (150-400); RED BLOOD CELL COUNT 4.89 M/mm3 (4.52-5.90); WHITE BLOOD CELL COUNT,WBC 5.24 K/mm3 (3.9-11.3)
[2023-11-19] MEDS ORDERED: HYDROmorphone 0.5 MG/0.5 ML Syringe IVPUSH ONE (08:37)
[2023-11-19 08:38] LABS: A/G RATIO 0.8 (1-2); ALANINE AMINOTRANSFERASE,ALT 247 U/L (16-63); ALBUMIN 3.8 g/dl (3.4-5.0); ALKALINE PHOSPHATASE 408 U/L (46-116); ANION GAP 14.6 (5-15); ASPARTATE AMNIOTRANSFERASE,AST 216 U/L (15-37); BILIRUBIN TOTAL 2.7 mg/dL (0.2-1.0); BLOOD UREA NITROGEN,BUN 6 mg/dL (7-18); BUN/CREATININE RATIO 7.5 (14-18); CALCIUM 9.3 mg/dL (8.5-10.1); CARBON DIOXIDE,CO2 28 mEq/L (21-32); CHLORIDE,CL 101 mEq/L (98-107); CREATININE 0.8 mg/dL (0.7-1.3); EST CRCL DRUG DOSING (CG) 89.51 mL/min; ESTIMATED GFR 100 mL/min (>60); GLUCOSE RANDOM 136 mg/dL (70-99); LIPASE 52 U/L (16-77); MAGNESIUM 1.5 mg/dL (1.8-2.4); POTASSIUM,K 3.6 mEq/L (3.5-5.1); PROTEIN TOTAL,TP 8.3 g/dl (6.4-8.2); SODIUM,NA 140 mEq/L (136-145)
[2023-11-19 08:39] LABS: TROPONIN I HIGH SENSITIVITY < 4 pg/mL (<=76)
[2023-11-19] MEDS: Famotidine 20 MG/2 ML SDV IVPUSH ONE (08:45)
[2023-11-19] MEDS: Aspirin 81 MG Tab.Chew PO ONE (08:45)
[2023-11-19] MEDS: Morphine 4 MG/ML Syringe IVPUSH ONE (08:45)
[2023-11-19] MEDS: Nitroglycerin 0.4 MG Tab.SL SL ONE (08:47)
[2023-11-19] MEDS: Sodium Chloride 0.9% 10 ML Syringe FLUSH PRN (08:48)
[2023-11-19] MEDS: Iopamidol 612 MG/ML 100 ML Bottle IVPUSH ONE (09:16)
[2023-11-19] MEDS: cefTRIAXone 2 GM in Sodium Chloride 0.9% 100 ML IV ONE (11:15)
[2023-11-19] MEDS: metroNIDAZOLE/Normal Saline 500 MG in Premix Bag 1 BAG IV ONE (11:44)
[2023-11-19] MEDS: Magnesium Sulfate/Water 2 GM in Premix Bag 1 BAG IV ONE (12:44)
[2023-11-19] MEDS: Sodium Chloride 0.9% 1,000 ML IV SCH (12:45)
== END 2023-11-19 13:44 ==
LOC: JD.ED 07:46
DX: K83.1 Obstruction of bile duct (principal); I10 Essential (primary) hypertension; E78.00 Pure hypercholesterolemia, unspecified; J44.9 Chronic obstructive pulmonary disease, unspecified; K21.9 Gastro-esophageal reflux disease without esophagitis; Z86.16 Personal history of COVID-19; Z90.49 Acquired absence of other specified parts of digestive tract; Z79.899 Other long term (current) drug therapy; Z88.8 Allergy status to other drugs, medicaments and biological substances
CPT/HCPCS: 36415; 71045; 74177; 80053; 83690; 83735; 84484; 85025; 93005; 96365; 96367; 96375; 99285; A9270; J0696; J1836; J2270; J3475; J3490; J7030; Q9967; 93010